=== PATIENT | male | born 1985 | race Caucasian/White ===

== ENCOUNTER 2019-05-03 16:08 | Emergency (ER) | payer SELFPAY ==
[~2019-05-03] VITALS: Ht 165.1 cm; Wt 127.0 kg
--- NOTE | 2019-05-03 16:39 | NUR ---
BILATERIAL BLOOD PRESSURE OBTAINED RIGHT: 229/118 LEFT: 206/104
[2019-05-03] MEDS ORDERED: CLONIDINE HCL 0.1 MG TAB PO ONE (16:59)
--- NOTE | 2019-05-03 17:03 | Diagnostic Imaging Report ---
EXAMINATION: CXR 2 VIEW - HOPD INDICATION: Hypertension COMPARISON: None FINDINGS: LINES/TUBES:None LUNGS:The lungs are well-inflated. No focal consolidation or pulmonary edema. PLEURA:No pleural effusion or pneumothorax. MEDIASTINUM:The cardiomediastinal silhouette appears normal in size and shape. BONES/SOFT TISSUES:No acute osseous injury. ABDOMEN:No free air under the diaphragm. IMPRESSION: No focal pneumonia or pulmonary edema. Signed by: Kira Vazquez MD on 05/03/2019 4:59 PM
[2019-05-03] MEDS ORDERED: POTASSIUM CHLORIDE 20 MEQ TAB CR PO STA (17:11)
--- NOTE | 2019-05-03 18:00 | NUR ---
PT RESTING, BP STILL ELEVATED, DR NOTIFIED, PT VOICES NO COMPLAINTS AT THIS TIME. PT AWARE OF POC
[2019-05-03] MEDS ORDERED: CLONIDINE HCL 0.1 MG TAB PO STA (18:06)
--- NOTE | 2019-05-03 19:01 | NUR ---
REPORT TO MARIE SANCHEZ ALL QUESTIONS ANSWERED
[2019-05-03 19:20] VITALS: BP 190/106
== END 2019-05-03 19:25 | disposition home or self-care (01) ==
LOC: FSED 16:08
DX: I10 Essential (primary) hypertension (principal); E87.6 Hypokalemia; K52.9 Noninfective gastroenteritis and colitis, unspecified
CPT/HCPCS: 71046; 80048; 80076; 80307; 81003; 82553; 84484; 85025; 93005; 99284